=== PATIENT | female | born 1960 | race Caucasian/White ===

== ENCOUNTER 2018-07-11 18:10 | Emergency (ER) | payer SELFPAY ==
[~2018-07-11] VITALS: Ht 160 cm; Wt 72.6 kg
[2018-07-11] MEDS ORDERED: TETANUS/DIPHTHERIA TOX ADULT 0.5 ML SYR IM ONE (18:45)
--- NOTE | 2018-07-11 19:33 | Diagnostic Imaging Report ---
EXAMINATION: SHOULDER RIGHT COMPLETE 07/11/2018 6:31 PM COMPARISON: None INDICATION: Fall DISCUSSION: 2 views of the right shoulder (AP internal and external rotation) Internal and external rotation are adequate No fracture or dislocation. Mild degenerative changes of the midclavicular joint. Soft tissues are unremarkable IMPRESSION: No acute radiographic abnormality of the right shoulder Krish Pearson MD Signed by: Dr. Krish Pearson M.D. on 07/11/2018 7:30 PM
--- NOTE | 2018-07-11 20:05 | Diagnostic Imaging Report ---
EXAMINATION: Head CT without contrast. HISTORY:Status post fall. COMPARISON:None. TECHNIQUE: Multidetector axial images were obtained from the foramen magnum to the vertex without contrast. The images were reconstructed using brain and bone algorithms. Thin section brain images were reformatted into coronal and sagittal planes. Dose modulation, iterative reconstruction, and/or weight based adjustment of the mA/kV was utilized to reduce the radiation dose to as low as reasonably achievable. Intravenous contrast: None IMAGE QUALITY: Acceptable. FINDINGS: Skull/scalp: Mild right frontal scalp edema/hematoma. No acute depressed or displaced calvarial fracture. Parenchyma: No abnormal density. No acute hemorrhage, mass or acute major vascular territorial infarct. Arteries: No density suggestive of thrombosis. Dural sinuses: No abnormal density suggestive of thrombosis. Ventricles: No hydrocephalus or displacement. Extra-axial spaces: No abnormal density. Brain volume: Normal for age. Craniocervical junction: No mass, Chiari malformation, or basilar invagination. Sella: No mass. Paranasal/mastoid sinuses: Imaged portions unremarkable. IMPRESSION: 1. Mild right frontal scalp edema/hematoma. No acute fracture. 2. No acute posttraumatic intracranial abnormality. Signed by: Dr. Rosalina Curry M.D. on 07/11/2018 8:02 PM
--- NOTE | 2018-07-11 20:10 | Diagnostic Imaging Report ---
History: Status post fall. Comparison studies: None Technique: Axial images were obtained through the cervical region.. Coronal and sagittal images reconstructed from the axial data. Dose modulation, iterative reconstruction, and/or weight based adjustment of the mA/kV was utilized to reduce the radiation dose to as low as reasonably achievable. Intravenous contrast: None Findings: Fractures: None. Soft tissue injuries: None. Atlantoaxial articulation: Intact. Alignment: Reversal of normal cervical lordosis is either positional or due to muscle spasm.. No scoliosis. Cervicomedullary junction: No abnormalities. The foramen magnum is patent. Soft tissues: Incidental 9.5 mm groundglass nodule in right lung apex. Vertebrae: 5 mm well-corticated osseous fragment superior to the tip of the dens may either represent a sequel of prior trauma or an accessory ossicle. No fractures, infection or neoplasm. Degenerative changes: C5-C6: Moderate degenerative disc disease. Posterior disc osteophyte complex without significant canal stenosis. Mild right foraminal stenosis due to facet and uncovertebral arthrosis. C6-C7: Moderate to severe degenerative disc disease. Posterior disc osteophyte complex results in mild canal stenosis. Mild left foraminal stenosis due to facet and uncovertebral arthrosis.. IMPRESSION: 1. No acute cervical spine fracture. Reversal of normal cervical lordosis is either positional or due to muscle spasm. 2. Ligament, spinal cord and or vascular abnormalities cannot be excluded on the basis of this examination. 3. Cervical spondylosis as detailed above. Signed by: Dr. Rosalina Curry M.D. on 07/11/2018 8:06 PM
--- NOTE | 2018-07-11 20:14 | Diagnostic Imaging Report ---
History:Fall. Comparison studies: None Technique: Axial images were obtained through the maxillofacial region. Coronal and sagittal images reconstructed from the axial data. Dose modulation, iterative reconstruction, and/or weight based adjustment of the mA/kV was utilized to reduce the radiation dose to as low as reasonably achievable. Intravenous contrast: None Findings: Soft tissues: Mild right frontal scalp soft tissue edema/hematoma that extends to the right periorbital region. Bones: No fractures or bony abnormalities. Multiple missing teeth, multifocal dental caries and endodontal disease, the activity of which is to be determined mind clinically. Orbits: Globes: Intact Extra or intraconal abnormalities: None. Paranasal sinuses: Clear IMPRESSION: 1. Mild right frontal scalp soft tissue edema/hematoma extends to right periorbital region. 2. No acute fracture. Signed by: Dr. Rosalina Curry M.D. on 07/11/2018 8:10 PM
--- NOTE | 2018-07-11 20:50 | Diagnostic Imaging Report ---
EXAMINATION: KNEE RIGHT THREE VIEWS 07/11/2018 6:31 PM COMPARISON: None INDICATION: Fall DISCUSSION: 3 views of the right knee (AP, lateral, and oblique) No fracture or dislocation. Bipartite patella likely represents a normal variant. Joint spaces are maintained. Soft tissues are unremarkable IMPRESSION: Bipartite patella is likely a normal variant. Correlate with patient tenderness to exclude patellar fracture. Otherwise no acute radiographic abnormality of the right knee. Krish Pearson MD Signed by: Dr. Krish Pearson M.D. on 07/11/2018 8:47 PM
[2018-07-11 21:07] VITALS: BP 153/63
== END 2018-07-11 21:25 | disposition home or self-care (01) ==
LOC: ER 18:10
DX: S00.83XA Contusion of other part of head, initial encounter (principal); S40.011A Contusion of right shoulder, initial encounter; S80.01XA Contusion of right knee, initial encounter; S50.311A Abrasion of right elbow, initial encounter; V58.4XXA Person boarding or alighting a pick-up truck or van injured in noncollision transport accident, initial encounter; Y92.488 Other paved roadways as the place of occurrence of the external cause
CPT/HCPCS: 70450; 70486; 72125; 90471; 90714; 99283